=== PATIENT | male | born 1955 | race Caucasian/White ===

== ENCOUNTER → 2020-05-02 | Outpatient (CLI) | payer OTHER ==
[~2020-05-02] MED LIST: SILD20TA2 PO; TAMS-11 PO
== END | disposition home or self-care (01) ==
LOC: STAR 14:22
PROVIDERS: ATTEND Student in an Organized Health Care Education/Training Program
DX: Z01.818 Encounter for other preprocedural examination (principal); K43.9 Ventral hernia without obstruction or gangrene
CPT/HCPCS: 93005

== ENCOUNTER 2020-05-07 12:16 | Day surgery (SDC) | payer OTHER ==
[~2020-05-07] VITALS: Ht 185.4 cm; Wt 94.5 kg
[~2020-05-07 12:16] MED LIST changes: +BUPIVACAINE/PF-EPI 0.5% 1:200K ONE
[2020-05-07] MEDS ORDERED: LACTATED RINGERS 1,000 ML IV ONE (12:28)
[2020-05-07] MEDS ORDERED: LIDOCAINE-MPF 1%, 2ML INFIL STA (12:28)
[2020-05-07] MEDS ORDERED: CHLORHEXIDINE 15 ML UDC MM STA (12:28)
[2020-05-07 12:41] VITALS: BP 121/82
[2020-05-07] MEDS ORDERED: PHENYLEPHRINE 10 MG/ML ONE (14:26)
[2020-05-07] MEDS ORDERED: EPHEDRINE 50 MG/ML, 1ML ONE (14:26)
[2020-05-07] MEDS ORDERED: FENTANYL PF 250 MCG/5ML ONE (14:27)
[2020-05-07] MEDS ORDERED: BUPIVACAINE/PF-EPI 0.5% 1:200K INFIL ONE (15:05)
[2020-05-07] MEDS ORDERED: CEFAZOLIN 1,000 MG ONE (15:51)
[2020-05-07] MEDS ORDERED: NEOSTIGMINE 1 MG/ML, 10ML ONE (15:51)
[2020-05-07] MEDS ORDERED: PROPOFOL 10 MG/ML, 20ML ONE (15:51)
[2020-05-07] MEDS ORDERED: ROCURONIUM 10MG/ML,5ML ONE (15:51)
[2020-05-07] MEDS ORDERED: ONDANSETRON 2MG/ML, 2ML ONE ×2 (15:51)
[2020-05-07] MEDS ORDERED: DEXAMETHASONE 4 MG/ML, 1ML ONE (15:51)
[2020-05-07] MEDS ORDERED: SUCCINYLCHOLINE 20 MG/ML, 10ML ONE (15:51)
[2020-05-07] MEDS ORDERED: GLYCOPYRROLATE 0.2MG/1ML, 5ML ONE (15:51)
[2020-05-07] MEDS ORDERED: SUGAMMADEX 200 MG/2 ML IVPush ONE (15:52)
[2020-05-07] MEDS ORDERED: LIDOCAINE GEL 2%, 5ML ONE (15:52)
[2020-05-07] MEDS ORDERED: KETOROLAC 30 MG/1 ML ONE (15:52)
[2020-05-07] MEDS ORDERED: FENTANYL PF 100 MCG/2ML ONE (16:04)
[2020-05-07] MEDS ORDERED: OXYcodone 5 MG/5 ML ORAL.SOL UDC ONE (16:05)
[2020-05-07] MEDS: FENTANYL PF 100 MCG/2ML IV PRN ×2 (16:15→16:20)
[2020-05-07] MEDS ORDERED: LABETALOL 5MG/ML, 20ML IV PRN (16:30)
[2020-05-07] MEDS ORDERED: ONDANSETRON 2MG/ML, 2ML IVPush PRN (16:30)
[2020-05-07] MEDS ORDERED: PROMETHAZINE 25 MG/ML, 1ML IVPush PRN (16:30)
[2020-05-07] MEDS ORDERED: MEPERIDINE/PF 25MG/0.5ML IVPush PRN (16:30)
[2020-05-07] MEDS ORDERED: OXYcodone 5 MG/5 ML ORAL.SOL UDC PO PRN (16:30)
[2020-05-07] MEDS ORDERED: HYDROmorphone 1 MG/ML, 1ML INJ IVPush PRN (16:30)
[2020-05-07] MEDS ORDERED: hydrALAzine 20 MG/ML, 1ML IV PRN (16:30)
== END 2020-05-07 18:20 | disposition home or self-care (01) ==
LOC: OUT 12:16
PROVIDERS: ATTEND Student in an Organized Health Care Education/Training Program
DX: K43.6 Other and unspecified ventral hernia with obstruction, without gangrene (principal); Z11.59 Encounter for screening for other viral diseases; Z79.899 Other long term (current) drug therapy; Z72.89 Other problems related to lifestyle; Z87.891 Personal history of nicotine dependence; Z85.828 Personal history of other malignant neoplasm of skin; Z82.49 Family history of ischemic heart disease and other diseases of the circulatory system
CPT/HCPCS: 36415; 49653; 87635; C1781; J0690; J1100; J1885; J2370; J2405; J2704; J3010; J7120; S2900; J2710; J0330

== ENCOUNTER 2021-02-24 06:37 | Day surgery (SDC) | payer MEDICARE, OTHER ==
[~2021-02-24] VITALS: Ht 185.4 cm; Wt 95.3 kg
[~2021-02-24 06:37] MED LIST changes: -BUPIVACAINE/PF-EPI 0.5% 1:200K ONE
[2021-02-24] MEDS ORDERED: NEOSPORIN OINT, 15GM ONE (06:53)
[2021-02-24] MEDS ORDERED: LIDOCAINE/PF 1%, 30ML ONE (06:53)
[2021-02-24] MEDS ORDERED: OXYMETAZOLINE NASAL SPRAY 0.05%,30ML ONE (06:53)
[2021-02-24 07:40] VITALS: BP 151/95
[2021-02-24] MEDS ORDERED: CHLORHEXIDINE 15 ML UDC PO ONE (08:00)
[2021-02-24] MEDS ORDERED: LACTATED RINGERS 1,000 ML IV SCH (08:00)
[2021-02-24] MEDS ORDERED: PROPOFOL 50 ML ONE (08:11)
[2021-02-24] MEDS ORDERED: MIDAZOLAM 1 MG/ML, 2ML ONE (08:11)
[2021-02-24] MEDS ORDERED: FENTANYL PF 250 MCG/5ML ONE (08:12)
[2021-02-24] MEDS ORDERED: LIDOCAINE 1%-EPI 1:100K, 20ML INFIL ONE (08:45)
[2021-02-24] MEDS ORDERED: BACITRACIN/POLYMYXIN B OPHTH OINT 3.5GM OP ONE (08:54)
[2021-02-24] MEDS ORDERED: EPHEDRINE 50 MG/ML, 1ML IM PRN (09:00)
[2021-02-24] MEDS ORDERED: morphine SULFATE 10 MG/ML, 1ML IVPush PRN (09:00)
[2021-02-24] MEDS ORDERED: OXYcodone 5 MG/5 ML ORAL.SOL UDC PO PRN (09:00)
[2021-02-24] MEDS ORDERED: DIAZEPAM 5 MG/ML, 2ML IVPush PRN (09:00)
[2021-02-24] MEDS ORDERED: ONDANSETRON 2MG/ML, 2ML IVPush PRN (09:00)
[2021-02-24] MEDS ORDERED: DIPHENHYDRAMINE 50 MG/ML, 1ML IVPush PRN (09:00)
[2021-02-24] MEDS ORDERED: PROMETHAZINE 25 MG/ML, 1ML IVPush PRN (09:00)
[2021-02-24] MEDS ORDERED: ACETAMINOPHEN 325 MG TABLET PO PRN (09:00)
[2021-02-24] MEDS ORDERED: EPHEDRINE 50 MG/ML, 1ML IVPush PRN (09:00)
[2021-02-24] MEDS ORDERED: MEPERIDINE/PF 25MG/0.5ML IVPush PRN (09:00)
[2021-02-24] MEDS ORDERED: DEXAMETHASONE 4 MG/ML, 1ML ONE (09:13)
[2021-02-24] MEDS ORDERED: PROPOFOL 10 MG/ML, 20ML ONE (09:13)
[2021-02-24] MEDS ORDERED: ONDANSETRON 2MG/ML, 2ML ONE (09:13)
[2021-02-24] MEDS ORDERED: ROCURONIUM 10MG/ML,5ML ONE (09:13)
[2021-02-24] MEDS ORDERED: LABETALOL 5MG/ML, 20ML ONE (10:12)
[2021-02-24] MEDS: LABETALOL 5MG/ML, 20ML IV PRN ×4 (10:13→10:54)
[2021-02-24] MEDS ORDERED: FENTANYL PF 100 MCG/2ML ONE (10:14)
[2021-02-24] MEDS: FENTANYL PF 100 MCG/2ML IV PRN ×2 (10:15→10:22)
[2021-02-24] MEDS ORDERED: OXYcodone 5 MG/5 ML ORAL.SOL UDC ONE (10:24)
[2021-02-24] MEDS ORDERED: ACETAMINOPHEN 650 MG/20.3 ML UDC ONE (10:24)
[2021-02-24] MEDS ORDERED: hydrALAzine 20 MG/ML, 1ML ONE (11:04)
[2021-02-24] MEDS ORDERED: hydrALAzine 20 MG/ML, 1ML IV PRN (11:30)
== END 2021-02-24 12:45 | disposition home or self-care (01) ==
LOC: OUT 06:37
PROVIDERS: ATTEND Otolaryngology
DX: J34.2 Deviated nasal septum (principal); J34.3 Hypertrophy of nasal turbinates; J35.01 Chronic tonsillitis; J34.89 Other specified disorders of nose and nasal sinuses; Z20.822 Contact with and (suspected) exposure to COVID-19; Z79.899 Other long term (current) drug therapy
CPT/HCPCS: 30140; 30520; 42140; 42826; 88305; 93005; J0360; J1100; J2250; J2405; J2704; J3010; J7120; U0003; U0005